=== PATIENT | male | born 1935 | race Caucasian/White ===

== ENCOUNTER 2020-01-23 07:40 | Observation (INO) | payer MEDICARE, SELFPAY ==
[2020-01-23] VITALS (13 sets, daily range): BP systolic 127–159; BP diastolic 51–75; PULSE 58–90; RESP 16–27; TEMP 36.4–37.2; O2SAT 95–100; BMI 33.3
--- NOTE | ~2020-01-23 | US_ITS ---
EXAMINATION: US venous doppler [facility] DATE: 01/23/2020 11:43 INDICATION: Left lower limb pain TECHNIQUE: [place] scale images without and with compression and Doppler images of the left lower extrem ity veins were obtained. COMPARISON: None FINDINGS: The left common femoral vein, profunda femoral vein, femoral vein, popliteal vein, peroneal trunk, posterior tibial veins, and greater saphenous vein are patent. IMPRESSION: 1. Patent left lower extremity veins. No evidence of deep venous thrombosis. Reviewed, dictated and finalized at location A.
--- NOTE | ~2020-01-23 | XR_ITS ---
EXAMINATION: XR chest 2V DATE: 01/23/2020 10:04 INDICATION: Lower limb pain TECHNIQUE: AP and lateral views of the chest are obtained. COMPARISON: 07/18/2017 FINDINGS: The lungs are free of acute opacities. There is no pleural effusion or pneumothorax. The ca rdiomediastinal silhouette is normal. There are bridging osteophytes at multiple levels in the spine, consistent with diffuse idiopathic skeletal hyperostosis (DISH). A suture anchor is noted in the rig ht humeral head. IMPRESSION: 1. No acute cardiopulmonary abnormality. Reviewed, dictated and finalized at location A.
--- NOTE | 2020-01-23 09:24 | ECG_ITS ---
Measurements Intervals [place] Rate: 76 P: [place]: 0 QRS: 49 QRSD: 174 T: 29 QT: 391 QTc: 442 Interpretive Statements ATRIAL FLUTTER/TACHYCARDIA RIGHT BUNDLE BRANCH BLOCK BASELINE ARTIFACT- I, II, III, AVR, AVL, AVF, V1-V4 ABNORMAL ECG Electronically Signed On 01-23-2020 9:27:02 CDT by Breezy Berman D.O.
[2020-01-23 09:40] LABS: Basophils Percent Auto 0.2 % (0.2-1.2); Hematocrit 41.5 % (42.0-52.0); Hemoglobin 13.7 g/dL (14.0-18.0); Immature Granulocyte Absolute 0.05 K/mm3 (0.00-0.031); Immature Granulocyte Percent A 0.4 % (0-0.5); Immature Platelet Fraction Pct 5.1 % (0.9-11.2); Lymphocytes Absolute Auto 0.54 K/mm3 (0.9-3.2); Lymphocytes Percent Auto 3.8 % (18.3-44.2); Mean Corpuscular Hemoglobin 30.4 pg (26-34); Mean Corpuscular Volume 92.2 fl (80-100); Mean Platelet Volume 10.9 fl (7.4-10.4); Monocytes Absolute Auto 0.6 K/mm3 (0.1-0.6); Monocytes Percent Auto 4.4 % (2.6-8.5); Neutrophils Percent Auto 91.2 % (45.5-73.1); Platelet Count Result 132 k/mm3 (150-375); Red Cell Distribution Width 13.3 % (11.5-14.5); White Blood Count 14.2 K/mm3 (4.5-10.0)
[2020-01-23 09:48] LABS: INR 1.1
[2020-01-23 09:49] LABS: Partial Thromboplastin Time 31.7 SECONDS (22.3-36.8)
[2020-01-23 09:50] LABS: Blood Urea Nitrogen 14 mg/dL (9-20); Calcium 8.8 mg/dL (8.4-10.2); Carbon Dioxide 29 mmol/L (22-30); Chloride 100 mmol/L (98-107); Estimated CRCL calculation 64 ml/min; Estimated Glomerular Filt Rate > 60; Glucose 132 mg/dL (75-110); Potassium 4.2 mmol/L (3.4-5.0); Sodium 134 mmol/L (137-145)
[2020-01-23 10:02] LABS: Troponin I < 0.012 ng/mL (0.000-0.034)
--- NOTE | 2020-01-23 10:41 | PC.NURSE ---
Verbal order received per Woodrow GLOVER, d/c aspirin order.
[2020-01-23 10:52] LABS: Creatine Kinase 49 U/L (55-170)
[2020-01-23] MEDS: SODIUM CHLORIDE 0.9% IV 500 ML 999 ML IV CONT (10:52)
--- NOTE | 2020-01-23 10:59 | ED.GENADULT ---
HPI - General Adult General Chief complaint: Extremity Injury, Lower <Ryan Loco PA-C - Last Filed: 01/23/20 12:48> Stated complaint: leg pain <Ryan Loco PA-C - Last Filed: 01/23/20 12:48> Time Seen by Provider: 01/23/20 10:02 <Ryan Loco PA-C - Last Filed: 01/23/20 12:48> Source: patient <Ryan Loco PA-C - Last Filed: 01/23/20 12:48> Mode of arrival: ambulatory <Ryan Loco PA-C - Last Filed: 01/23/20 12:48> Limitations: no limitations <Ryan Loco PA-C - Last Filed: 01/23/20 12:48> History of Present Illness HPI narrative: Patient is a 85-year-old male who presents to emergency department with swelling of the left lower extremity and erythema and pain that began yesterday evening patient notes erythema involving the ankle region up to just below the knee. Patient denies injury or trauma or similar occurrence. Patient has not taken anything for his symptoms and presents from home. <Ryan Loco PA-C - Last Filed: 01/23/20 12:48> Related Data Home medications: Home Medications Medication Instructions Recorded Confirmed No Home Medications 01/23/20 01/23/20 <Ryan Loco PA-C - Last Filed: 01/23/20 12:48> Allergies/adverse reactions: Allergies Allergy/AdvReac Type Severity Reaction Status Date / Time Penicillins Allergy Unknown Hives Verified 01/23/20 07:58 chlorine Allergy Other Uncoded 01/23/20 07:58 <Ryan Loco PA-C - Last Filed: 01/23/20 12:48> Review of Systems Review of Systems: All systems reviewed & are unremarkable except as noted in HPI and below <Ryan Loco PA-C - Last Filed: 01/23/20 12:48> PMFSH Past Medical History Medical History: Medical History (Updated 01/23/20 @ 13:39 by Montse Heck MD) Bilateral knee pain <Ryan Loco PA-C - Last Filed: 01/23/20 12:48> Surgical History Surgical History: Surgical History (Updated 01/23/20 @ 10:59 by Ryan Loco PA-C) History of orthopedic surgery <Ryan Loco PA-C - Last Filed: 01/23/20 12:48> Family History Family History: Family History (Updated 12/30/17 @ 10:55 by DOCTOR UNKNOWN) Mother Family history of malignant neoplasm of gastrointestinal tract Other Diabetes mellitus Family history of malignant neoplasm <Ryan Loco PA-C - Last Filed: 01/23/20 12:48> Social History Social History: Social History Smoking packs per day: 3 Smoking cigarettes per day: 60.0 Years smoked: 10 Smoking pack-years: 30.00 Smoking status: Former smoker Tobacco type: cigarettes Second hand tobacco smoke exposure: No Smoking end date: 08/11/1955 Alcohol intake: never Substance use: never Substance use type: does not use Gender identity (if verbalized by the patient): Male <Ryan Loco PA-C - Last Filed: 01/23/20 12:48> Exam Narrative: Exam Narrative: GENERAL: Well-appearing, obese, and in no acute distress. HEAD: Normocephalic, atraumatic. EYES: PERRLA and EOMI. ENT: Nares clear, no rhinorrhea or epistaxis. Mucous membranes moist. Oropharynx without tonsillar hypertrophy exudate or other lesions. CHEST: Clear to auscultation. No respiratory distress. No wheezes rales or rhonchi HEART: Regular rate and rhythm. No murmur heard. Normal peripheral pulses. ABDOMEN: Soft, nontender, nondistended EXTREMITIES: Normal range of motion. No edema. Swelling and splotchy erythema and warmth to touch from the ankle to the lower portion of the knee of the left lower extremity SKIN: Warm, dry, no rash. NEURO: No focal deficits. Alert and oriented x3. Cranial nerves II through XII grossly intact. Neurovascularly intact PSYCH: Normal mood and affect. 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 Discussed th
[2020-01-23 11:25] LABS: Lactic Acid Reflex 1.2 mmol/L (0.7-2.1)
--- NOTE | 2020-01-23 12:01 | ED.GENADULT ---
HPI - General Adult General Chief complaint: Extremity Injury, Lower Stated complaint: leg pain Time Seen by Provider: 01/23/20 10:02 Source: patient Mode of arrival: ambulatory Limitations: no limitations Related Data Home Medications Medication Instructions Recorded Confirmed No Home Medications 01/23/20 01/23/20 Allergies Allergy/AdvReac Type Severity Reaction Status Date / Time Penicillins Allergy Unknown Hives Verified 01/23/20 07:58 chlorine Allergy Other Uncoded 01/23/20 07:58 [facility] Past Medical History Medical History (Updated 01/23/20 @ 13:30 by Montse Heck MD) Bilateral knee pain Surgical History Surgical History (Updated 01/23/20 @ 10:59 by Ryan Loco PA-C) History of orthopedic surgery Family History Family History (Updated 12/30/17 @ 10:55 by DOCTOR UNKNOWN) Mother Family history of malignant neoplasm of gastrointestinal tract Other Diabetes mellitus Family history of malignant neoplasm Social History Social History Smoking packs per day: 3 Smoking cigarettes per day: 60.0 Years smoked: 10 Smoking pack-years: 30.00 Smoking status: Former smoker Tobacco type: cigarettes Second hand tobacco smoke exposure: No Smoking end date: 08/11/1955 Alcohol intake: never Substance use: never Substance use type: does not use Gender identity (if verbalized by the patient): Male 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 Patient presents with painful left lower leg. No injury. He said the pain is fine now but it was intolerable in the night. He also says that he does not have a history of atrial fibrillation. His EKG shows a flutter with a rate of 76. We will get a BNP and a troponin. Treating his left lower leg cellulitis with vancomycin and ciprofloxacin, since he has allergy to penicillin. Explained that he would be admitted for this. He agrees. [id number] for 10 minutes.Montse Heck Consultations Consultation #1: Call the hospitalist for admission for left leg cellulitis. Dr. Canales request a cardiology consult for the new onset A. fib. Date: 01/23/20 Time: 12:04 Consultation #2: Calling cardiology for consult. Dr. Nolasco called back and accepts the consult. Date: 01/23/20 Time: 12:14 Vital Signs Vital signs: Vital Signs Temperature 98.9 F 01/23/20 07:48 Pulse Rate 75 01/23/20 07:48 Respiratory Rate 16 01/23/20 07:48 Blood Pressure 159/75 H 01/23/20 07:48 Pulse Oximetry 100 01/23/20 07:48 Temperature 98.9 F 01/23/20 07:48 Pulse Rate 60 01/23/20 12:55 Respiratory Rate 22 H 01/23/20 12:55 Blood Pressure 137/51 L 01/23/20 12:55 Pulse Oximetry 99 01/23/20 12:55 Medical Decision Making Medical Records Medical records reviewed: Yes I reviewed the patient's medical records. Vital Signs Vital Signs: Vital Signs Temperature 98.9 F 01/23/20 07:48 Pulse Rate 75 01/23/20 07:48 Respiratory Rate 16 01/23/20 07:48 Blood Pressure 159/75 H 01/23/20 07:48 Pulse Oximetry 100 01/23/20 07:48 Temperature 98.9 F 01/23/20 07:48 Pulse Rate 60 01/23/20 12:55 Respiratory Rate 22 H 01/23/20 12:55 Blood Pressure 137/51 L 01/23/20 12:55 Pulse Oximetry 99 01/23/20 12:55 Lab Data Result diagrams: 01/23/20 09:29 01/23/20 09:29 Labs: Lab Results 01/23/20 01/23/20 01/23/20 Range/Units 09:29 09:29 09:29 WBC 14.2 H (4.5-10.0) K/mm3 RBC 4.50 L (4.6-6.20) M/mm3 Hgb 13.7 L (14.0-18.0) g/dL Hct 41.5 L (42.0-52.0) % MCV 92.2 (80-100) fl MCH 30.4 (26-34) pg MCHC 33.0 (32-36) g/dl RDW 13.3 (11.5-14.5) % Plt Count 132 L (150-375) k/mm3 MPV 10.9 H (7.4-10.4) fl Immature Gran % (Auto) 0.4 (0-0.5) % Neut % (Auto) 91.2 H (45.5-73.1) % Lymph % (Auto) 3.8 L (18.3-44.2) % [place] % (Auto) 4.4 (2.6-8.5) % Eos % (A
[2020-01-23 13:02] LABS: NT Pro B Type Natriuretic Pept 457 PG/ML (5-100)
[2020-01-23 13:06] LABS: Troponin I < 0.012 ng/mL (0.000-0.034)
--- NOTE | 2020-01-23 13:17 | PC.NURSE ---
Patients heart rate dropped to 38 when resting, Woodrow/Dr. Heck notified. Patient has no c/o at this time, no new orders noted.
[2020-01-23] MEDS: CIPROFLOXACIN 400 MG/D5W 200ML 200 ML 200 MG IVPB (13:51)
--- NOTE | 2020-01-23 14:42 | ADMGEN ---
This patient, Karlo Cheung I, was admitted to IMU Room 213-01 @ 1440. Patient/family oriented to hospital policies and general routines including ID bracelet, bed and alarms, visiting hours, pain management, procedures, bathroom and other care routines, personal items, smoking policy, room service/diet, and visiting hours. Valuables list has been completed. Information on how to activate the Rapid Response Team has been discussed. Patient/Family are encouraged to report perceived risks to care and to ask questions if they do not understand what they are told or what they should do.
[2020-01-23 16:25] LABS: Hemoglobin A1C 5.8 % (<5.7)
--- NOTE | 2020-01-23 16:30 | PM.IMHP ---
H&P: HPI History of Present Illness Chief complaint: Left leg pain and redness. Narrative: Karlo Cheung I is an 85-year-old male without any significant medical history who presented to the emergency department earlier today via EMS from home for evaluation of left leg pain and redness. Last evening not long after return to bed he developed shooting pain in his left lower leg that he has a difficult time describing ?it just hurt.? He noticed that the area was red and hot and he was worried that perhaps he had a blood clot as this morning his leg was also swollen. He denies injury to the leg and has not had any abrasions or bug bites to his knowledge. He has no history of cellulitis or multidrug resistant organisms. Of note, an EKG done on arrival to the emergency department showed atrial flutter/tachycardia with a ventricular rate of 76 which is a new finding for the patient. Almost 60 years ago when he was hospitalized for pneumonia he was told that ?my heart skips a beat sometimes? and it sounds as though he was monitor on event monitor for a period of time however had no recurrence of such. He denies palpitations, racing heart, chest pain, and shortness of breath. He has no history of sleep apnea and denies orthopnea and PND. Review of Systems Review of Systems: Narrative: Twelve systems were reviewed with pertinent positives and negatives as per HPI. No fever, chills, or sweats. No recent cold or flu-like symptoms. He denies lightheadedness and dizziness. No chest pain or shortness of breath. Appetite has been good. His weight has remained stable after a > 100 pound weight loss over the past couple of years. No nausea, vomiting, or diarrhea. Except as documented, all other systems were reviewed and are negative. [facility] Past Medical History Medical History (Updated 01/23/20 @ 15:09 by Vivian Lou PA-C) Anemia Elevated PSA PSA has fluctuated over the years and is being monitored. History of colon polyps Patient of Dr. Jerald Landrum. Osteoarthritis Surgical History Surgical History (Updated 01/23/20 @ 15:07 by Vivian Lou PA-C) History of cataract extraction History of hemorrhoidectomy History of lumbar fusion History of repair of rotator cuff Bilateral. History of tonsillectomy History of total bilateral knee replacement Family History Family History Mother Family history of malignant neoplasm of gastrointestinal tract Other Diabetes mellitus Family history of malignant neoplasm Social History Social History (Updated 01/23/20 @ 20:53 by Vivian Lou PA-C) Social History: Surrogate decision maker: Ariana Damon, daughter. Code status: Full code. Smoking packs per day: 3 Smoking cigarettes per day: 60.0 Years smoked: 10 Smoking pack-years: 30.00 Smoking status: Former smoker Tobacco type: cigarettes Second hand tobacco smoke exposure: No Smoking end date: 08/11/1955 Alcohol intake: never Substance use: never Additional living arrangements comments: Patient lives in his own home in [place]. since October 2016. 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 Gender identity (if verbalized by the patient): Male Spiritual care concerns: No Meds Home Medications and Allergies Home Medications Medication Instructions Recorded Confirmed Type No Home Medications 01/23/20 01/23/20 History Allergies Allergy/AdvReac Type Severity Reaction Status Date / Time Penicillins Allergy Unknown Hives Verified 01/23/20 07:58 chlorine Allergy Other Uncoded 01/23/20 07:58 Vital Signs Vital Signs - 24 hr 01/23/20 07:48 01/23/20 08:31 01/23/20 10:08 Temperature 98.9 F Pulse Rate 75 78 90 Respiratory Rate 16 21 H 16 Blood Pressure 159/75 H 148/68 H 127/54 L Pulse Oximetry 100 95 98 01/23/20 11:56 01/23/20 12:55 01/23/20 13:42 Temperature
[2020-01-23 16:37] LABS: Troponin I < 0.012 ng/mL (0.000-0.034)
[2020-01-23] MEDS: CLINDAMYCIN 600 MG/NS 50 ML 600 MG/50 ML PIGGYBACK 100 MG IVPB (22:14)
[2020-01-23] MEDS: ENOXAPARIN 120 MG/0.8 ML SYRINGE SUB-Q (22:15)
[2020-01-24] VITALS (14 sets, daily range): BP systolic 123–174; BP diastolic 50–67; PULSE 48–93; RESP 12–18; TEMP 35.8–36.7; O2SAT 98–100
--- NOTE | 2020-01-24 | ECHO_ITS ---
Patient Info Name: Karlo Cheung Age: 85 years : 1935 Gender: Male Ht: 75 in Wt: 268 lbs BSA: 2.57 m2 HR: 70 bpm BP: 146 / 54 mmHg Heart Rhythm: Atrial Flutter Technical Quality: Fair Exam Date: 01/24/2020 11:59 AM Exam Location: [facility] Patient Status: Inpatient Admit Date: 01/23/2020 Staff Ordering Physician: Vivian Lou PA-C Meat Puller: Simon Thakur RDCS Attending Provider: Harman Canales MD Referring Physician: Carmine MARTINEZ; Exam Type: CA echo doppler color flow Study Info Indications 427.32 - Atrial flutter I47.9 - Paroxysmal tachycardia, unspecified Complete two-dimensional, color flow and Doppler transthoracic echocardiogram is performed. History/Risk Factors Atrial tachycardia; atrial flutter, pedal edema. Summary 1. Left ventricular systolic function is normal, estimated at 60-65%. 2. There is mildly increased left ventricular wall thickness. 3. Left atrial chamber dimension is moderately enlarged. 4. There is no aortic valve stenosis. 5. There is trace aortic valve regurgitation. 6. There is mild aortic valve calcification. 7. There is trace mitral valve regurgitation. 8. The mitral valve annulus is moderately calcified. 9. Unable to estimate PA systolic pressure due to poor spectral resolution of tricuspid regurgitant jet velocity. Left Ventricle Left ventricular systolic function is normal, estimated at 60-65%. Left ventricular chamber dimension is normal. There is mildly increased left ventricular wall thickness. Left ventricular septal wall motion is normal. The left ventricular diastolic function is indeterminate. Right Ventricle Right ventricular chamber dimension is normal. Right ventricular systolic function is normal. Left Atria Left atrial chamber dimension is moderately enlarged. Right Atria Right atrial chamber dimension is mildly enlarged. Aortic Valve The aortic valve is not well visualized. There is no aortic valve stenosis. There is trace aortic valve regurgitation. There is mild aortic valve calcification. Pulmonic Valve The pulmonic valve is not well visualized. Mitral Valve The mitral valve has thickened leaflets. There is trace mitral valve regurgitation. The mitral valve annulus is moderately calcified. Tricuspid Valve The tricuspid valve leaflets are not well visualized. Unable to estimate PA systolic pressure due to poor spectral resolution of tricuspid regurgitant jet velocity. Pericardium/Pleural The pericardium appears normal. There is no pericardial effusion. Inferior Vena Cava Normal inferior vena cava with >50% collapse upon inspiration consistent with normal right atrial pressure, 5 mmHg. Aorta The aortic root size at the sinus of Valsalva is mildly dilated. Left Ventricular Outflow Tract Name Value Normal LVOT 2D LVOT Diameter 2.3 cm LVOT Doppler LVOT Peak Gradient 3 mmHg LVOT Mean Gradient 2 mmHg LVOT VTI 15 cm LVOT VTI/AV VTI Ratio 0.6
[2020-01-24 04:59] LABS: Basophils Percent Auto 0.2 % (0.2-1.2); Eosinophils Percent Auto 0.3 % (0-4.4); Hematocrit 36.4 % (42.0-52.0); Hemoglobin 12.2 g/dL (14.0-18.0); Immature Granulocyte Absolute 0.04 K/mm3 (0.00-0.031); Immature Granulocyte Percent A 0.4 % (0-0.5); Immature Platelet Fraction Pct 7.1 % (0.9-11.2); Lymphocytes Absolute Auto 1.72 K/mm3 (0.9-3.2); Lymphocytes Percent Auto 16.2 % (18.3-44.2); Mean Corpuscular HGB Conc 33.5 g/dl (32-36); Mean Corpuscular Hemoglobin 30.4 pg (26-34); Mean Corpuscular Volume 90.8 fl (80-100); Monocytes Absolute Auto 0.7 K/mm3 (0.1-0.6); Monocytes Percent Auto 6.9 % (2.6-8.5); Neutrophils Absolute Auto 8.1 K/mm3 (1.3-6.7); Platelet Count Result 108 k/mm3 (150-375); Red Blood Count 4.01 M/mm3 (4.6-6.20); Red Cell Distribution Width 13.3 % (11.5-14.5); White Blood Count 10.7 K/mm3 (4.5-10.0)
[2020-01-24 05:07] LABS: Alanine Aminotransferase 12 U/L (4-50); Albumin Level 3.5 g/dL (3.5-5.1); Alkaline Phosphatase 62 U/L (38-126); Aspartate Amino Transferase 22 U/L (17-59); Blood Urea Nitrogen 13 mg/dL (9-20); Calcium 8.3 mg/dL (8.4-10.2); Carbon Dioxide 30 mmol/L (22-30); Chloride 101 mmol/L (98-107); Estimated CRCL calculation 68 ml/min; Estimated Glomerular Filt Rate > 60; Glucose 97 mg/dL (75-110); Potassium 3.6 mmol/L (3.4-5.0); Sodium 134 mmol/L (137-145)
[2020-01-24] MEDS: CLINDAMYCIN 600 MG/NS 50 ML 600 MG/50 ML PIGGYBACK 100 MG IVPB ×3 (05:31→21:19)
[2020-01-24] MEDS: ENOXAPARIN 40 MG/0.4 ML SYRINGE SUB-Q (09:04)
--- NOTE | 2020-01-24 11:56 | PM.CNCAR ---
Assessment and Plan Assessment and plan (1) Atrial flutter: Code(s): I48.92 - Unspecified atrial flutter Status: Acute Assessment and Plan: Resumed new diagnosis atrial flutter with variable AV block, duration unknown. Asymptomatic, controlled ventricular response. Chest 2 Vasc score 2 (age>75; although BP has been elevated suggestive of HTN for a score of 3 most likely), therefore, systemic anticoagulation advised for embolic stroke risk reduction. Explained risks versus benefits in this regard in great detail. All questions answered to his satisfaction. Patient does not agree to anticoagulation despite understanding increased embolic stroke risk. As he is asymptomatic and heart rate control no urgency with consideration for cardioversion. He remains off AV yeni blocking agents with a controlled ventricular response. He wishes to minimize medications and so will not add AV yeni blocking agents at this time. Will review 2D echocardiogram prior to discharge. If additional pathology or LV dysfunction noted will recommend at least low-dose beta-renee as appropriate/tolerated. -renal function, electrolytes, and TSH unremarkable. Negative troponin. No evidence for decompensated heart failure. Acute infection may have triggered, however, not the only explanation for presence of atrial flutter. Explained in great detail risk for embolic stroke methods for reduction with systemic anticoagulation, the inferior risk reduction with aspirin as compared anticoagulation and the primary risk with therapy namely bleeding complications. Patient was not comfortable making a decision at this time to commit to anticoagulation. He was appreciative of the time spent and explanations provided in this regard. He notes he had an extensive evaluation with [facility] years ago including a normal heart coronary angiogram. Wishes to return to see them as an outpatient and defer anticoagulation until that time. As a compromise, he agreed to take aspirin enteric-coated 325 mg daily in the interval but understanding that this is not our recommendation. Verbalized understanding and states he will make an appointment with them as soon as possible for follow-up. 2D echocardiogram pending. Recommendations to follow. Need to monitor for bleeding. Advised to take with full glass of water and food. Monitor platelet count as an outpatient. (2) Thrombocytopenia: Code(s): D69.6 - Thrombocytopenia, unspecified Status: Acute Assessment and Plan: Mild, stable. Follow trend, outpatient evaluation particularly on aspirin or other anticoagulant therapy. No evidence for bleeding. (3) Cellulitis of left leg: Code(s): L03.116 - Cellulitis of left lower limb Status: Acute Assessment and Plan: Per primary service. Antibiotics as appropriate. Blood cultures negative x2 thus far. History of Present Illness History of Present Illness Consult date/time: Date of service: 01/24/20 11:56 This is a cardiology consultation at the request of ADALBERTO Pérez for our opinion regarding atrial flutter. Requesting physician: Vivian Lou PA-C Consult reason: atrial fibrillation (Atrial flutter) Reason For Visit: Left leg pain and redness. Narrative: Patient is a very pleasant an otherwise healthy 85-year-old gentleman with no known prior diagnosis of atrial fibrillation and/or atrial flutter. He denies known history of hypertension, diabetes mellitus or dyslipidemia. In great detail, he explained how he takes care of himself in issues he has had with chloride [place] water resolve drinking with his own well water. He eats fresh vegetables and avoid processed foods, sugar and attributes this to his general health. He denies significant pain and has no history of chest pain or palpitations. He on occasion will note sensation of a skipped or flopped beat but nothing sustained. He has no limitations and denies exer
--- NOTE | 2020-01-24 14:03 | PM.IMPN ---
Progress Note: A&P Assessment and Plan (1) Cellulitis of left leg: Code(s): L03.116 - Cellulitis of left lower limb Status: Acute Assessment and Plan: Patient has left lower extremity cellulitis. Still painful with walking. White count trending downward. No fevers. Allergy to penicillin. Clindamycin has been started. Probably home tomorrow on oral regiment. Lower extremity Doppler was negative for DVT. (2) Atrial flutter: Code(s): I48.92 - Unspecified atrial flutter Status: Acute Assessment and Plan: Patient does not have a history of atrial fib. He is not alcoholic. TSH is normal. Echocardiogram ordered. Cardiology has been consulted and spoke with patient about the benefits of anticoagulation which the patient does not wish to proceed with at this time. He is agreeable with aspirin which has been started. Follow up on echocardiogram. Echo showing EF 60-65% and only mild valvular disease. If he refuses anticoagulation consider Watchman procedure. (3) Thrombocytopenia: Code(s): D69.6 - Thrombocytopenia, unspecified Status: Acute Assessment and Plan: Platelet count 132K. No baseline to compare. Repeat platelet count is 108K. Consider B12 deficiency. Consider hepatic dysfunction. Denies alcohol use. Will check B12 level. Continue to monitor. (4) Leukocytosis: Qualifiers: Leukocytosis type: unspecified Qualified Code(s): D72.829 - Elevated white blood cell count, unspecified Code(s): D72.829 - Elevated white blood cell count, unspecified Status: Acute Assessment and Plan: White count elevated most likely related to cellulitis. On repeat white count has trended downward. (5) Bradycardia: Code(s): R00.1 - Bradycardia, unspecified Status: Acute Assessment and Plan: Patient noted to be bradycardic overnight. He may have undiagnosed sleep apnea. Will check apnea link. Be cautious with AV blocking agents. Subjective Date/time seen: 01/24/20 14:03 Interval history: 85yo male here for cellulitis and found to have atrial fibrillation. Patient feels well today. No chest pain or shortness of breath. He has an exercise machine at home and when he exercises he has chest pain or significant dyspnea. He states his heart rate climbs to 80 to 90bpm when exercising. No history of atrial fibrillation that he is aware of. He has a history of bilateral total knee arthroplasties. He has some pain in the left leg when he is walking but no pain at rest. Eating normally. Nursing states patient developed bradycardia overnight. Exam Narrative: Exam Narrative: Afebrile 146/54 68 Gen - NARD sitting up eating lunch Chest - CTA bilaterally CV -irregularly irregular. S1-S2. Telemetry showing atrial fibrillation. Bradycardic to 31 at times overnight Abd - soft, NT/ND, +BS Ext - 1+ indurated pedal edema left LE Psych - nml mood and affect Skin - erythematous patch circumferential left lower extrem that is warm to touch adn tender Objective Data Vital Signs Vital Signs: Vital Signs - 24 hr 01/23/20 14:22 01/23/20 15:11 01/23/20 16:00 Temperature 98.3 F Pulse Rate 68 64 69 Respiratory Rate 18 20 Blood Pressure 141/62 H 135/53 L Pulse Oximetry 100 98 01/23/20 18:10 01/23/20 19:33 01/23/20 20:00 Temperature 97.5 F L Pulse Rate 60 69 69 Respiratory Rate 18 Blood Pressure 141/57 H Pulse Oximetry 98 01/23/20 22:00 01/24/20 00:00 01/24/20 02:00 Temperature 96.7 F L Pulse Rate 58 L 48 L 52 L Respiratory Rate 18 Blood Pressure 160/67 H Pulse Oximetry 98 01/24/20 04:00 01/24/20 04:38 01/24/20 06:00 Temperature 98.0 F Pulse Rate 71 69 49 L Respiratory Rate 18 Blood Pressure 174/66 H Pulse Oximetry 100 01/24/20 07:55 01/24/20 08:00 01/24/20 10:00 Tempera
--- NOTE | 2020-01-24 22:25 | PC.NURSE ---
This patient, Karlo Cheung, was transferred to [[id number] ] on 01/24/20 at 2215. Personal belongings sent with patient. Belongings list checked and signed with receiving [ ]. Report given to [ Mariela]. Appropriate documentation sent with patient.
--- NOTE | 2020-01-24 22:42 | PC.NURSE ---
This patient, Karlo Cheung, was received from [imu [id number] ] on 01/24/20 at 2233. Personal belongings list checked and signed. Patient/family oriented to unit policies and routines
[2020-01-25] VITALS (10 sets, daily range): BP systolic 103–148; BP diastolic 51–70; PULSE 34–89; RESP 16–18; TEMP 36.1–36.7; O2SAT 96–98
[2020-01-25] MEDS: CLINDAMYCIN 600 MG/NS 50 ML 600 MG/50 ML PIGGYBACK 100 MG IVPB ×3 (05:19→21:00)
[2020-01-25 06:05] LABS: Basophils Percent Auto 0.1 % (0.2-1.2); Eosinophils Absolute Auto 0.1 K/mm3 (0-0.3); Eosinophils Percent Auto 1.5 % (0-4.4); Hematocrit 37.1 % (42.0-52.0); Hemoglobin 12.5 g/dL (14.0-18.0); Immature Granulocyte Absolute 0.03 K/mm3 (0.00-0.031); Immature Granulocyte Percent A 0.4 % (0-0.5); Immature Platelet Fraction Pct 7.9 % (0.9-11.2); Lymphocytes Absolute Auto 1.52 K/mm3 (0.9-3.2); Lymphocytes Percent Auto 21.2 % (18.3-44.2); Mean Corpuscular HGB Conc 33.7 g/dl (32-36); Mean Corpuscular Hemoglobin 30.6 pg (26-34); Mean Corpuscular Volume 90.7 fl (80-100); Mean Platelet Volume 11.5 fl (7.4-10.4); Monocytes Absolute Auto 0.5 K/mm3 (0.1-0.6); Monocytes Percent Auto 7.5 % (2.6-8.5); Neutrophils Percent Auto 69.3 % (45.5-73.1); Platelet Count Result 115 k/mm3 (150-375); Red Blood Count 4.09 M/mm3 (4.6-6.20); Red Cell Distribution Width 13.4 % (11.5-14.5); White Blood Count 7.2 K/mm3 (4.5-10.0)
[2020-01-25 07:24] LABS: Folic Acid 9.9 ng/mL (2.76->20)
[2020-01-25] MEDS: ENOXAPARIN 40 MG/0.4 ML SYRINGE SUB-Q (09:55)
[2020-01-25] MEDS: ASPIRIN 325 MG ENTERIC TABLET PO (09:55)
--- NOTE | 2020-01-25 17:36 | PM.IMPN ---
Progress Note: A&P Assessment and Plan (1) Cellulitis of left leg: Code(s): L03.116 - Cellulitis of left lower limb Status: Acute Assessment and Plan: Patient has left lower extremity cellulitis. Still painful with walking. White count now normal No fevers. Allergy to penicillin. responding to clindamycin. Probably home tomorrow on oral regiment. Lower extremity Doppler was negative for DVT. (2) Atrial flutter: Code(s): I48.92 - Unspecified atrial flutter Status: Acute Assessment and Plan: Patient does not have a history of atrial fib. He is not alcoholic. TSH is normal. Echocardiogram ordered. Cardiology has been consulted and spoke with patient about the benefits of anticoagulation which the patient does not wish to proceed with at this time. He is agreeable with aspirin which has been started. . Echo showing EF 60-65% and only mild valvular disease. (3) Thrombocytopenia: Code(s): D69.6 - Thrombocytopenia, unspecified Status: Acute Assessment and Plan: Platelet count 132K. No baseline to compare. Repeat platelet count is 115K. B12 low normal at 333.. Continue to monitor. (4) Leukocytosis: Qualifiers: Leukocytosis type: unspecified Qualified Code(s): D72.829 - Elevated white blood cell count, unspecified Code(s): D72.829 - Elevated white blood cell count, unspecified Status: Acute Assessment and Plan: White count elevated most likely related to cellulitis. On repeat white count now normal (5) Bradycardia: Code(s): R00.1 - Bradycardia, unspecified Status: Acute Assessment and Plan: Patient noted to be bradycardic overnight. He may have undiagnosed sleep apnea. apnea link,AHI 22 for high prob of FACUNDO. should have formal sleep study if he will. Subjective Date/time seen: 01/25/20 17:36 Interval history: Date of visit. 85yo male here for cellulitis and found to have atrial fibrillation. Patient feels well today. No chest pain or shortness of breath. He has an exercise machine at home and when he exercises he has no chest pain or significant dyspnea. He states his heart rate climbs to 80 to 90bpm when exercising. No history of atrial fibrillation that he is aware of. He has a history of bilateral total knee arthroplasties. He has some pain in the left leg when he is walking but no pain at rest. Eating normally. Nursing states patient developed bradycardia again overnight Exam Narrative: Exam Narrative: Afebrile 148/52 60 sat 98% RA Gen - NARD sitting up eating lunch Chest - clear CV -irregularly irregular. S1-S2. Telemetry showing atrial fibrillation. Bradycardic to 30s at times overnight Abd - soft, , +BS Ext - indurated pedal left LE slight warm and erythematous Psych - nml mood and affect Skin - erythematous patch circumferential left lower extrem that is warm to touch adn tender Objective Data Vital Signs Vital Signs: Vital Signs - 24 hr 01/24/20 18:00 01/24/20 20:00 01/24/20 22:00 Temperature 36.6 C Pulse Rate 58 L 65 63 Respiratory Rate 18 Blood Pressure 131/50 L Pulse Oximetry 99 01/25/20 00:00 01/25/20 04:00 01/25/20 08:00 Temperature 36.4 C 36.7 C 36.2 C L Pulse Rate 64 34 L 66 Respiratory Rate 18 16 18 Blood Pressure 140/60 138/64 140/51 L Pulse Oximetry 98 96 97 01/25/20 12:00 01/25/20 12:28 01/25/20 16:00 Temperature 36.2 C L Pulse Rate 69 69 50 L Respiratory Rate 18 Blood Pressure 148/51 H Pulse Oximetry 98 Intake/Output Intake/Output: Intake & Output 01/22/20 01/23/20 01/24/20 01/25/20 23:59 23:59 23:59 23:59 Intake Total 2750 1180 930 Output Total 400 8625 1550 Balance 7835 -87 -223 Meds/Results Medications: Active Medications Generic Name Dose Route Start Last Admin Trade Name Rylanq MERA Bustamantea
[2020-01-26] VITALS: PULSE 63
[2020-01-26 04:00] VITALS: BP 141/59; PULSE 62; RESP 16; TEMP 36.6; O2SAT 99
[2020-01-26] MEDS: CLINDAMYCIN 600 MG/NS 50 ML 600 MG/50 ML PIGGYBACK 100 MG IVPB (05:22)
[2020-01-26 08:00] VITALS: PULSE 66
[2020-01-26] MEDS: ASPIRIN 325 MG ENTERIC TABLET PO (08:49)
[2020-01-26] MEDS: ENOXAPARIN 40 MG/0.4 ML SYRINGE SUB-Q (08:50)
[2020-01-26 08:56] VITALS: PULSE 64; RESP 16; O2SAT 99
--- NOTE | 2020-01-27 17:55 | PM.DS ---
DS: Admitting Diagnosis Admitting Diagnosis Admitting Diagnosis: Cellulitis of left lower limb DS: Discharge Diagnosis Discharge Diagnosis (1) Cellulitis of left leg: Code(s): L03.116 - Cellulitis of left lower limb Status: Acute Assessment and Plan: Patient has left lower extremity cellulitis. Still minimal pain l with walking at discharge. White count returned to normal No fevers. Allergy to penicillin. responded to clindamycin. IV here and was discharged on clindamycin 450 mg q.8 hours for 7 more days. Lower extremity Doppler was negative for DVT. (2) Atrial flutter: Code(s): I48.92 - Unspecified atrial flutter Status: Acute Assessment and Plan: Patient does not have a history of atrial fib. . TSH is normal. Cardiology has been consulted and spoke with patient about the benefits of anticoagulation which the patient does not wish to proceed with at this time. He is agreeable with aspirin which has been started. . Echo showing EF 60-65% and only mild valvular disease. (3) Thrombocytopenia: Code(s): D69.6 - Thrombocytopenia, unspecified Status: Acute Assessment and Plan: Platelet count 132K. No baseline to compare. Repeat platelet count is 115K. B12 low normal at 333.. Follow with primary (4) Bradycardia: Code(s): R00.1 - Bradycardia, unspecified Status: Acute Assessment and Plan: Patient noted to be bradycardic while sleeping is close 30-40. . apnea link,AHI 22 for high prob of FACUNDO. Total patient E could discuss his primary care about possibility of formal sleep study as an outpatient DS: Summary Hospital Course Hospital Course: Healthy 81-year-old white male presented with pain swelling of left lower leg and found to have cellulitis with leukocytosis and negative venous Doppler. Treated with IV clindamycin which improved and discharged on oral clindamycin for 7 more days. Found to have atrial fibrillation with controlled ventricular response with negative echocardiogram. Cardiology recommended anticoagulation patient did agree to aspirin daily but not full anticoagulation Apnea link revealed high probability of obstructive sleep apnea with AHI of 22 and patient encouraged to discuss possible formal sleep study with his primary care Time Spent with Patient Time attestation: Total time spent providing and/or coordinating discharge services: 35 minutes Exam Narrative: Exam Narrative: Condition on discharge blood pressure 140/60 pulse 62 saturating 99% on room air afebrile Lungs clear CV irregular no murmur Abdomen is soft nontender Extremities fullness in left leg below-knee minimal tenderness anterior canela with minimal erythema Good distal pulses Neuro alert cooperative no focal deficits DS: Data Data Completed and Pending Labs on day of discharge: Preliminary micro results at discharge 01/23/20 10:59 Blood Culture - Preliminary Blood 01/23/20 10:59 Blood Culture - Preliminary Blood Discharge Plan Discharge Attending physician on discharge: Aristides Whitfield Consulting providers: Luis Nolasco ; Ryan Loco Discharging Clinician: Aristides Whitfield Patient Disposition: Home, Self-Care Activity: as tolerated Diet: regular Patient Instructions: Antibiotic Form, Clindamycin (By injection), Heart Failure (DC), Heart Failure (GEN), A-fib (Atrial Fibrillation) (GEN), Cellulitis (GEN), Pain Management in Older Adults (GEN), Bradycardia (GEN) Stand Alone Forms: General Discharge Information Follow-up/Referrals: Ender Lund MD [Primary Care Provider] - 1 Week Discharge Medications: New aspirin 325 mg Tablet,Delayed Release (Dr/Ec) 325 mg PO QAM Qty: 100 RF: 0 clindamycin HCl 300 mg capsule 300 mg PO Q8H Qty: 21 RF: 0 clindamycin HCl 150 mg capsule 150 mg
== END 2020-01-26 13:00 | disposition home or self-care (01) ==
LOC: ANHED 13:42 → ANHIMU 15:08 → ANH3MED 01-25 11:35 → ANHIMU 01-28 09:17
PROVIDERS: Emergency Medicine Emergency Medical Services; Internal Medicine; Physician Assistant; Admitting Provider Family Medicine; Emergency Provider Emergency Medicine; PCP Family Medicine; Visit Provider Internal Medicine
DX: L03.116 Cellulitis of left lower limb (principal); I48.92 Unspecified atrial flutter; D69.6 Thrombocytopenia, unspecified; R00.1 Bradycardia, unspecified; Z87.891 Personal history of nicotine dependence; M79.605 Pain in left leg; Z96.653 Presence of artificial knee joint, bilateral; Z79.82 Long term (current) use of aspirin; D64.9 Anemia, unspecified; D72.829 Elevated white blood cell count, unspecified; I48.91 Unspecified atrial fibrillation
CPT/HCPCS: 36415; 71046; 80048; 80053; 82550; 82607; 82746; 83036; 83605; 83880; 84443; 84484; 85025; 85055; 85610; 85730; 87040; 93005; 93306; 93971; 94762; 96365; 96366; 96367; 96372; 99285; A9270; G0378; J0744; J1650; J3370; J7040

== ENCOUNTER 2021-02-26 17:09 | Outpatient (RCR) | payer MEDICARE, SELFPAY ==
--- NOTE | 2021-02-27 07:18 | PTOPEVAL ---
Thank you for referring Karlo Cheung to [facility].? The patient is scheduled to be seen for therapy? _2___x/week for 8 visits. Please review, sign, date and return this plan of care ANITRA. I agree with and certify that the following plan of care is medically necessary. Referring Physician Date Admitting Provider: Attending Provider: Jak Maurer Referring Provider: *PT Outpatient Evaluation Start: 02/26/21 17:08 Freq: Status: Active Protocol: Document 02/26/21 17:09 NATALY (Rec: 02/26/21 17:57 NATALY [id number]) Therapy Assessment Status Assessment Status Assessment Status Evaluation Outpatient Past Medical History Neurological History Hx Neurological Disorders No Significant History Cardiovascular History Hx Cardiac Disorders No Significant History Respiratory History Hx Respiratory Disorders No Significant History Gastrointestinal History Hx Gastrointestinal Bleed Yes Genitourinary History Hx Benign Prostatic Hyperplasia Yes Musculoskeletal History Hx Back Injury Yes: back surgery Hx Joint Replacement Yes: aristeo knee Hx Orthopedic Surgery Yes: bilateral knees/bilateral shoulder Hematological History Hx Hematological Disorders No Significant History Endocrine History Hx Endocrine Disorders No Significant History HEENT History Hx Cataracts Yes: aristeo cataract removal Hx Dental Problems Yes: full set dentures Hx Eye Surgery Yes: aristeo cataract removal Integumentary History Hx Skin Disorders No Significant History Reproductive History Hx Reproductive Disorders No Significant History Psychosocial History Hx Psychiatric Disorders No Significant History Pain History History of Any Previous or Ongoing No Significant History Instance of Pain Anesthesia History Hx Anesthesia Reactions No Significant History Evaluation Information Problem Diagnosis right MAILE Onset 02/14/21 Subjective Information Pt. reports that he underwent Query Text:As Reported By Patient/ right MAILE on 02/14/21. He Family states that his biggest complication is pain in the right thigh. He states that the pain in his hip is gone but still has some thigh pain. 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
--- NOTE | 2021-03-22 17:00 | PTOPEVAL ---
Thank you for referring Karlo Cheung to [facility].? The patient is scheduled to be seen for therapy? ____x/week for ___ weeks. Please review, sign, date and return this plan of care ANITRA. I agree with and certify that the following plan of care is medically necessary. Referring Physician Date Admitting Provider: Attending Provider: Jak Maurer Referring Provider: HUGH Outpatient Evaluation Start: 02/26/21 17:08 Freq: Status: Active Protocol: Document 03/22/21 16:10 [facility] (Rec: 03/22/21 16:56 [facility] [id number]) Therapy Assessment Status Assessment Status Assessment Status Re-evaluation Outpatient Past Medical History Neurological History Hx Neurological Disorders No Significant History Cardiovascular History Hx Cardiac Disorders No Significant History Respiratory History Hx Respiratory Disorders No Significant History Gastrointestinal History Hx Gastrointestinal Bleed Yes Genitourinary History Hx Benign Prostatic Hyperplasia Yes Musculoskeletal History Hx Back Injury Yes: back surgery Hx Joint Replacement Yes: aristeo knee Hx Orthopedic Surgery Yes: bilateral knees/bilateral shoulder Hematological History Hx Hematological Disorders No Significant History Endocrine History Hx Endocrine Disorders No Significant History HEENT History Hx Cataracts Yes: aristeo cataract removal Hx Dental Problems Yes: full set dentures Hx Eye Surgery Yes: aristeo cataract removal Integumentary History Hx Skin Disorders No Significant History Reproductive History Hx Reproductive Disorders No Significant History Psychosocial History Hx Psychiatric Disorders No Significant History Pain History History of Any Previous or Ongoing No Significant History Instance of Pain Anesthesia History Hx Anesthesia Reactions No Significant History Evaluation Information Problem Diagnosis right MAILE Onset 02/14/21 Subjective Information patient reports he feels good Query Text:As Reported By Patient/ this date. he reports no Family pain in the R hip. he reports he uses a walker outside the home, but uses a cane in the home. he reports he returns to the surgeon on 03/30/21. Pain Assessment Timing of Pain Assessment Timing of Pain Assessment Assessment Self Report Self Report Pain Level 0 Pain Score Pain Score 0: Self Report Lower Extremity Muscle Strength Testing General Lower Extremity Strength Gross Lower Extremity Strength -right hip flexion 4-/5 -left hip flexion 4+/5
== END 2021-03-22 17:28 | disposition home or self-care (01) ==
LOC: CHSPT 17:09
DX: M25.551 Pain in right hip (principal)
CPT/HCPCS: 97110; 97116; 97161

== ENCOUNTER 2023-01-31 09:07 | Outpatient (CLI) | payer MEDICARE, SELFPAY ==
[2023-01-31 10:03] LABS: Hematocrit 43.2 % (42.0-52.0); Hemoglobin 14.4 g/dL (14.0-18.0); Immature Platelet Fraction Pct 8.1 % (0.9-11.2); Mean Corpuscular HGB Conc 33.3 g/dl (32-36); Mean Corpuscular Hemoglobin 30.8 pg (26-34); Mean Corpuscular Volume 92.5 fl (80-100); Mean Platelet Volume 11.1 fl (7.4-10.4); Platelet Count Result 132 k/mm3 (150-375); Red Blood Count 4.67 M/mm3 (4.6-6.20); Red Cell Distribution Width 14.2 % (11.5-14.5); White Blood Count 5.3 K/mm3 (4.5-10.0)
[2023-01-31 10:09] LABS: Appearance Urine Clear (Clear); Bacteria Urine None Seen /hpf; Bilirubin Urine Negative (Negative); Blood Urine Negative (Negative); Color Urine Yellow (Yellow); Glucose Urine UA Negative (Negative); Ketones Urine Negative (Negative); Leukocyte Esterase Ur 3+ LEU/UL (NEGATIVE); Nitrate Urine Negative (Negative); Non Pathogenic Casts 0-2; Protein Urine Negative (Negative); RBC Urine 0-2 /hpf (0-2); Specific Grav Ur 1.014 (1.001-1.035); Squamous Epithelial Cell Urine Occasional /hpf (Few); WBC Urine 51-100 /hpf (0-3); pH Urine 5.5 (5.0-9.0)
[2023-01-31 10:10] LABS: Add Urine Microscopic? YES
[2023-01-31 10:30] LABS: Alanine Aminotransferase 23 U/L (6-50); Albumin Level 4.5 g/dL (3.5-5.1); Alkaline Phosphatase 66 U/L (38-126); Anion Gap 4 mmol/L (8-16); Aspartate Amino Transferase 38 U/L (17-59); Bilirubin,Total 2.5 mg/dL (0.2-1.3); Blood Urea Nitrogen 25 mg/dL (9-20); Calcium 8.8 mg/dL (8.4-10.2); Carbon Dioxide 30 mmol/L (22-30); Chloride 103 mmol/L (98-107); Cholesterol 158 mg/dL (0-200); Estimated Glomerular Filt Rate > 60; Glucose 105 mg/dL (65-110); HDL Direct 63 mg/dL; Potassium 4.5 mmol/L (3.4-5.0); Sodium 137 mmol/L (137-145); Triglycerides 48 mg/dL (<150)
[2023-01-31 10:35] LABS: Hemoglobin A1C 5.3 % (<5.7)
[2023-01-31 10:38] LABS: LDL Cholesterol Direct 78 mg/dL
[2023-01-31 10:51] LABS: Prostate Specific Antigen 7.6 ng/mL (< OR = 4.0)
== END 2023-01-31 09:08 | disposition home or self-care (01) ==
PROVIDERS: PCP Family Medicine; Visit Provider Family Medicine
DX: Z00.00 Encounter for general adult medical examination without abnormal findings (principal); R97.20 Elevated prostate specific antigen [PSA]; R73.01 Impaired fasting glucose; E78.5 Hyperlipidemia, unspecified; N40.0 Benign prostatic hyperplasia without lower urinary tract symptoms
CPT/HCPCS: 36415; 80053; 80061; 81001; 83036; 84153; 84443; 85027; 85055

== ENCOUNTER 2023-08-01 11:06 | Outpatient (CLI) | payer MEDICARE, SELFPAY ==
[2023-08-01 12:26] LABS: Prostate Specific Antigen 8.3 ng/mL (< OR = 4.0)
== END 2023-08-01 11:07 | disposition home or self-care (01) ==
LOC: ANHLAB 11:08
PROVIDERS: PCP Family Medicine; Visit Provider Family Medicine
DX: E03.9 Hypothyroidism, unspecified (principal); I50.9 Heart failure, unspecified; R97.20 Elevated prostate specific antigen [PSA]
CPT/HCPCS: 36415; 84153; 84443

== ENCOUNTER 2023-09-08 09:21 | Outpatient (CLI) | payer MEDICARE, OTHER, SELFPAY ==
--- NOTE | ~2023-09-08 | US_ITS ---
EXAMINATION: US carotid duplex BI DATE: 09/08/2023 10:24 INDICATION: Transient cerebral ischemic attack, unspecified. TECHNIQUE: Grayscale, color Doppler, and pulsed Doppler images of the cervical carotid arteries were obtained. The degree of vessel stenosis is placed in one of the following categories: normal, <50%, 5 0-69%, >=70% but less than near-occlusion, near-occlusion, or total occlusion. Note that percent sten osis relative to normal distal artery lumen diameter is indirectly measured from velocity measurement s as described by Alexys, et al. Radiology 2003; 229:340-346. COMPARISON: None. FINDINGS: RIGHT: The right common carotid artery (CCA) peak systolic velocity (PSV) is 83 cm/s. The right internal car otid artery (ICA) PSV is 89 cm/s. The right ICA end-diastolic velocity (EDV) is 19 cm/s. The right IC A/CCA PSV ratio is 1.1. Grayscale and color Doppler images yield an estimate of <50% diameter reducti on from plaque in the ICA. There is antegrade flow in the right vertebral artery. LEFT: The left CCA PSV is 80 cm/s. The left ICA PSV is 73 cm/s. The left ICA EDV is 18 cm/s. The left ICA/C CA PSV ratio is 0.9. Grayscale and color Doppler images yield an estimate of <50% diameter reduction from plaque in the ICA. There is antegrade flow in the left vertebral artery. IMPRESSION: 1. <50% stenosis in the right internal carotid artery. 2. <50% stenosis in the left internal carotid artery. Reviewed, dictated and finalized at location A. ICIAN'S AIDE
== END 2023-09-08 09:22 | disposition home or self-care (01) ==
LOC: ANHIMG 09:38
PROVIDERS: PCP Family Medicine; Visit Provider Family Medicine
DX: I65.23 Occlusion and stenosis of bilateral carotid arteries (principal)
CPT/HCPCS: 93880